=== PATIENT | female | born 1950 | race Caucasian/White ===

== ENCOUNTER 2018-01-09 19:43 | Observation (INO) | payer OTHER ==
[2018-01-09] MEDS: ASPIRIN 325 MG TAB PO (23:39)
[2018-01-09] MEDS: NITROGLYCERIN 2% 1 GM OINT PKT TD (23:40)
[2018-01-10 00:18] LABS: ADD MAN DIFF? NO
[2018-01-10 00:19] LABS: BASOPHILS % 0.5 % (0.0-2.0); EOSINOPHILS # 0.5 10^3/ul (0.0-0.5); EOSINOPHILS % 5.7 % (0.0-7.0); HEMATOCRIT 40.4 % (37.0-47.0); HEMOGLOBIN 13.8 g/dl (12.0-16.0); LYMPHOCYTES # 4.1 10^3/ul (0.8-2.9); LYMPHOCYTES % 48.2 % (15.0-51.0); MEAN CORPUSCULAR HEMOGLOBIN 31.7 pg (29.0-33.0); MEAN CORPUSCULAR HGB CONC 34.2 g/dl (32.0-37.0); MEAN CORPUSCULAR VOLUME 92.9 fl (82.0-101.0); MEAN PLATELET VOLUME 9.3 fl (7.4-10.4); MONOCYTE # 0.6 10^3/ul (0.3-0.9); MONOCYTES % 7.1 % (0.0-11.0); NEUTROPHIL # 3.2 10^3/ul (1.6-7.5); NEUTROPHILS % 38.3 % (39.0-77.0); PLATELET COUNT 283 10^3/UL (140-415); RED BLOOD COUNT 4.35 10^6/ul (4.20-5.40); RED CELL DISTRIBUTION WIDTH 12.3 % (11.5-14.5)
[2018-01-10 00:19] LABS: WHITE BLOOD COUNT 8.4 10^3/ul (4.8-10.8)
[2018-01-10 00:44] LABS: ANION GAP 13 (8-16); BLOOD UREA NITROGEN 21 mg/dl (7-20); CALCIUM 9.5 mg/dl (8.4-10.2); CARBON DIOXIDE 27 mmol/L (21-31); CHLORIDE 105 mmol/L (97-110); CREATININE 0.64 mg/dl (0.44-1.00); GLUCOSE 125 mg/dl (70-220); POTASSIUM 3.6 mmol/L (3.5-5.1); SODIUM 141 mmol/L (135-144)
[2018-01-10 00:56] LABS: TROPONIN-I < 0.012 ng/ml (0.00-0.12)
[2018-01-10 06:30] LABS: CREATINE KINASE 130 IU/L (23-200)
[2018-01-10 06:40] LABS: CK INDEX 2.3; CK-MB 3.01 ng/ml (0.0-2.4)
[2018-01-10 06:42] LABS: TROPONIN-I < 0.012 ng/ml (0.00-0.12)
[2018-01-10] MEDS ORDERED: BISACODYL (EC) 5 MG TAB PO (07:30)
[2018-01-10] MEDS ORDERED: NITROGLYCERIN (SL) 0.4 MG TAB SL (07:30)
[2018-01-10] MEDS ORDERED: DOCUSATE SODIUM 100 MG CAP PO (07:30)
[2018-01-10] MEDS ORDERED: NACL 0.9% 3 ML SYG IV (07:30)
[2018-01-10] MEDS: ACETAMINOPHEN 325 MG TAB PO (08:41)
[2018-01-10] MEDS: ASPIRIN 81 MG TAB PO (09:13)
[2018-01-10] MEDS: morphine 2 MG INJ IV (09:42)
[2018-01-10] MEDS: ONDANSETRON 4 MG INJ IV (09:43)
[2018-01-10 14:46] LABS: CREATINE KINASE 102 IU/L (23-200)
[2018-01-10 15:10] LABS: CK INDEX 2.1; CK-MB 2.19 ng/ml (0.0-2.4)
[2018-01-10 15:21] LABS: TROPONIN-I < 0.012 ng/ml (0.00-0.12)
[2018-01-10] MEDS: METOCLOPRAMIDE 10 MG INJ IV (18:00)
[2018-01-11] MEDS: METOCLOPRAMIDE 10 MG INJ IV ×3 (06:00→11:32)
[2018-01-11 06:15] LABS: ADD MAN DIFF? NO
[2018-01-11 06:39] LABS: ALANINE AMINOTRANSFERASE 30 IU/L (13-69); ALBUMIN 3.8 g/dl (3.3-4.9); ALBUMIN/GLOBULIN RATIO 1.15; ALKALINE PHOSPHATASE 80 IU/L (42-121); ANION GAP 11 (8-16); ASPARTATE AMINO TRANSFERASE 27 IU/L (15-46); BILIRUBIN,INDIRECT 0.3 mg/dl (0-1.1); BILIRUBIN,TOTAL 0.3 mg/dl (0.2-1.3); BLOOD UREA NITROGEN 17 mg/dl (7-20); CALCIUM 9.2 mg/dl (8.4-10.2); CARBON DIOXIDE 28 mmol/L (21-31); CHLORIDE 110 mmol/L (97-110); CHOL/HDL RATIO 4.3 RATIO; CHOLESTEROL 206 mg/dl (100-200); CREATININE 0.77 mg/dl (0.44-1.00); GLUCOSE 98 mg/dl (70-220); HDL CHOLESTEROL 47 mg/dl (35-98); LDL CHOLESTEROL,CALCULATED 112 mg/dl; POTASSIUM 4.3 mmol/L (3.5-5.1); SODIUM 145 mmol/L (135-144); TOTAL PROTEIN 7.1 g/dl (6.1-8.1); TRIGLYCERIDES 233 mg/dl (0-149)
[2018-01-11 06:43] LABS: HEMOGLOBIN A1C 5.5 % (0-5.9)
[2018-01-11 07:29] LABS: BASOPHILS % 0.4 % (0.0-2.0); EOSINOPHILS # 0.4 10^3/ul (0.0-0.5); EOSINOPHILS % 4.9 % (0.0-7.0); HEMATOCRIT 40.1 % (37.0-47.0); HEMOGLOBIN 13.6 g/dl (12.0-16.0); LYMPHOCYTES # 3.1 10^3/ul (0.8-2.9); LYMPHOCYTES % 39.2 % (15.0-51.0); MEAN CORPUSCULAR HEMOGLOBIN 32.3 pg (29.0-33.0); MEAN CORPUSCULAR HGB CONC 33.9 g/dl (32.0-37.0); MEAN CORPUSCULAR VOLUME 95.2 fl (82.0-101.0); MEAN PLATELET VOLUME 9.3 fl (7.4-10.4); MONOCYTE # 0.7 10^3/ul (0.3-0.9); MONOCYTES % 8.6 % (0.0-11.0); NEUTROPHIL # 3.7 10^3/ul (1.6-7.5); NEUTROPHILS % 46.6 % (39.0-77.0); PLATELET COUNT 272 10^3/UL (140-415); RED BLOOD COUNT 4.21 10^6/ul (4.20-5.40); RED CELL DISTRIBUTION WIDTH 12.8 % (11.5-14.5)
[2018-01-11 07:29] LABS: WHITE BLOOD COUNT 7.9 10^3/ul (4.8-10.8)
[2018-01-11] MEDS: ASPIRIN 81 MG TAB PO (08:33)
== END 2018-01-11 12:48 | disposition home or self-care (01) ==
LOC: MS3 01-10 01:08 → E/R 19:43
DX: R07.89 Other chest pain (principal); M17.12 Unilateral primary osteoarthritis, left knee; I35.8 Other nonrheumatic aortic valve disorders; Z88.6 Allergy status to analgesic agent
CPT/HCPCS: 36415; 71045; 80048; 80053; 80061; 82550; 82553; 83036; 84443; 84484; 85025; 93005; 93306; 96374; 96375; 99285-25